=== PATIENT | male | born 2000 | race Caucasian/White ===

== ENCOUNTER 2019-07-07 11:29 | Emergency (ER) | payer OTHER ==
[2019-07-07 11:54] VITALS: BP 129/69; PULSE 94; TEMP 99.3; BMI 20.5
--- NOTE | 2019-07-07 12:36 | PDOC ---
History of Present Illness - General Chief Complaint: Cold Symptoms Stated Complaint: COLD SYMPTOMS Time Seen by Provider: 07/07/19 11:59 History Source: Patient - History of Present Illness Initial Comments: 07/07/19 13:08 18-year-old male complaining of chills, low-grade temperature and throat pain with nasal congestion for 1 day. Patient reports that everyone in the family with flu. Past History - Past Medical History Allergies/Adverse Reactions: Allergies Allergy/AdvReac Type Severity Reaction Status Date / Time No Known Allergies Allergy Verified 07/07/19 11:51 Home Medications: Ambulatory Orders Acetaminophen 650 mg PO QID PRN #20 tablet 07/07/19 Ibuprofen [Motrin -] 400 mg PO QID PRN #20 tablet 07/07/19 Oseltamivir Phosphate [Tamiflu] 75 mg PO BID #10 capsule 07/07/19 - Psycho Social/Smoking Cessation Hx Smoking History: Never smoked Hx Alcohol Use: No Drug/Substance Use Hx: No Review of Systems - Review of Systems Able to Perform ROS?: Yes Is the patient limited [place] proficient: No Constitutional: Yes: Fever HEENTM: Yes: Nose Congestion Respiratory: Yes: Cough. No: Symptoms reported, See HPI, Orthopnea, Shortness of Breath, SOB with Exertion, SOB at Rest, Stridor, Wheezing, Productive cough, Hemoptysis, Other Cardiac (ROS): No: Symptoms Reported, See HPI, Chest Pain, Edema, Irregular Heart Rate, Lightheadedness, Palpitations, Syncope, Chest Tightness, Other ABD/GI: No: Symptoms Reported, See HPI, Abdominal Distended, Abd. Pain w/ defecation, Blood Streaked Bowels, Constipated, Diarrhea, Difficulty Swallowing , Nausea, Poor Appetite, Poor Fluid Intake, Rectal Bleeding, Vomiting, Indigestion, Abdominal cramping, Tarry Stools, Other *Physical Exam - Vital Signs Last Vital Signs Temp Pulse Resp BP Pulse Ox 99.3 F 94 H 16 129/69 100 07/07/19 11:53 07/07/19 11:53 07/07/19 11:53 07/07/19 11:53 07/07/19 11:53 - Physical Exam General Appearance: Yes: Appropriately Dressed HEENT: positive: Pharyngeal Erythema, Nasal Congestion Respiratory/Chest: positive: Lungs Clear, Normal Breath Sounds Cardiovascular: positive: Regular Rhythm, Regular Rate Gastrointestinal/Abdominal: positive: Normal Bowel Sounds, Soft. negative: Tender Integumentary: positive: Normal Color, Dry, Warm Neurologic: positive: Fully Oriented, Alert, Normal Mood/Affect ED Progress Note - Progress Note Progress Note: 07/07/19 16:23 A; influenza P: tamiflu supportive care Discharge - Discharge Information Problems reviewed: Yes Clinical Impression/Diagnosis: Influenza Disposition: HOME - Additional Discharge Information Prescriptions: Acetaminophen 650 mg PO QID PRN #20 tablet PRN Reason: Fever Ibuprofen [Motrin -] 400 mg PO QID PRN #20 tablet PRN Reason: Fever Oseltamivir Phosphate [Tamiflu] 75 mg PO BID #10 capsule - Follow up/Referral Referrals: Phuc Gallardo MD [Primary Care Provider] - - Patient Discharge Instructions Patient Printed Discharge Instructions: Influenza Additional Instructions: Drink plenty of fluids. Take Tamiflu as prescribed Give Tylenol every 4 hours as needed for fever Give ibuprofen then every 6 hours as needed for fever Follow-up with your doctor as soon as possible. Return to the emergency room if symptoms worsen. - Post Discharge Activity Work/Back to School Note: Back to Work
[2019-07-07] MEDS ORDERED: ACETAMINOPHEN 325 MG TABLET (FP) PO ONE (13:13)
[2019-07-07] MEDS ORDERED: ACETAMINOPHEN 325 MG TABLET (FP) ONE (13:14)
== END 2019-07-07 13:18 | disposition home or self-care (01) ==
LOC: JERFT 11:29
DX: J11.1 Influenza due to unidentified influenza virus with other respiratory manifestations (principal)
CPT/HCPCS: 99283-25